=== PATIENT | female | born 1960 | race Caucasian/White ===

== ENCOUNTER → 2016-03-19 | Outpatient (CLI) | payer MEDICAID | END | disposition home or self-care (01) | LOC: LABWHC1 14:59 | PROVIDERS: ATTEND Otolaryngology | DX: E03.9 Hypothyroidism, unspecified (principal) | CPT/HCPCS: 36415; 84443 ==

== ENCOUNTER → 2016-05-17 | Outpatient (CLI) | payer MEDICAID ==
--- NOTE | 2016-05-21 11:22 | MM ---
Reason for exam: screening (asymptomatic). Last mammogram was performed 1 year and 3 months ago. History: Patient is postmenopausal. Taking estrogen beginning at age 51. Physical Findings: A clinical breast exam by your physician is recommended on an annual basis and results should be correlated with mammographic findings. MG Screening Mammo w CAD Bilateral CC and MLO view(s) were taken. Prior study comparison: February 28, 2015, bilateral MG screening mammo w CAD. November 04, 2013, left breast MG diagnostic mammo LT w CAD. The breast tissue is heterogeneously dense. This may lower the sensitivity of mammography. No significant changes when compared with prior studies. ASSESSMENT: Benign, BI-RAD 2 RECOMMENDATION: Routine screening mammogram of both breasts in 1 year.
== END | disposition home or self-care (01) ==
LOC: RADMAMWWP 07:01
PROVIDERS: ATTEND Family Medicine
DX: Z12.31 Encounter for screening mammogram for malignant neoplasm of breast (principal)

== ENCOUNTER → 2016-05-18 | Outpatient (CLI) | payer MEDICAID ==
[~2016-05-18] MED LIST: DENOSUMAB 60 MG/ML 1 ML SYRINGE SQ ONE
[2016-05-18 13:04] VITALS: BP 116/73; PULSE 68; RESP 16; TEMP 97.7
== END | disposition home or self-care (01) ==
LOC: PROCWHC3 11:11
PROVIDERS: ATTEND Family Medicine
DX: M81.0 Age-related osteoporosis without current pathological fracture (principal)
CPT/HCPCS: 96372; J0897

== ENCOUNTER → 2016-10-19 | Outpatient (CLI) | payer MEDICAID ==
[2016-10-19 15:42] LABS: Tis Transglutaminase IgA Unit <0.5 AI; Tis Transglutaminase IgG Unit <0.8 U/mL
== END | disposition home or self-care (01) ==
LOC: LABWHC1 06:55
PROVIDERS: ATTEND Family Medicine
DX: Z00.00 Encounter for general adult medical examination without abnormal findings (principal); E03.8 Other specified hypothyroidism; M81.0 Age-related osteoporosis without current pathological fracture; R14.3 Flatulence
CPT/HCPCS: 36415; 80061; 82306; 82947; 83516; 84439; 84443

== ENCOUNTER → 2016-12-28 | Outpatient (CLI) | payer MEDICAID ==
[2016-12-28 16:57] VITALS: BP 124/82; PULSE 68; RESP 16; TEMP 97.6
== END | disposition home or self-care (01) ==
LOC: PROCWHC3 13:59
PROVIDERS: ATTEND Family Medicine
DX: M81.0 Age-related osteoporosis without current pathological fracture (principal)
CPT/HCPCS: 96372; J0897

== ENCOUNTER → 2017-07-19 | Outpatient (CLI) | payer MEDICAID ==
--- NOTE | 2017-07-22 10:16 | MM ---
Reason for exam: screening (asymptomatic). Last mammogram was performed 1 year and 2 months ago. History: Patient is postmenopausal. Taking estrogen beginning at age 51. Physical Findings: A clinical breast exam by your physician is recommended on an annual basis and results should be correlated with mammographic findings. MG 3D Screening Mammo W/Cad Bilateral CC and MLO view(s) were taken. Prior study comparison: May 17, 2016, bilateral MG screening mammo w CAD. February 28, 2015, bilateral MG screening mammo w CAD. The breast tissue is heterogeneously dense. This may lower the sensitivity of mammography. No suspicious abnormality. No significant changes when compared with prior studies. ASSESSMENT: Negative, BI-RAD 1 RECOMMENDATION: Routine screening mammogram of both breasts in 1 year.
== END | disposition home or self-care (01) ==
LOC: RADMAMWWP 06:59
PROVIDERS: ATTEND Family Medicine
DX: Z12.31 Encounter for screening mammogram for malignant neoplasm of breast (principal)
CPT/HCPCS: 77063; 77067

== ENCOUNTER → 2017-07-26 | Outpatient (CLI) | payer MEDICAID ==
[2017-07-26 14:46] VITALS: BP 127/70; PULSE 92; RESP 16; TEMP 98.2
== END | disposition home or self-care (01) ==
LOC: PROCWHC3 13:53
PROVIDERS: ATTEND Family Medicine
DX: M81.0 Age-related osteoporosis without current pathological fracture (principal)
CPT/HCPCS: 96372; J0897

== ENCOUNTER → 2017-09-17 | Outpatient (CLI) | payer MEDICAID ==
--- NOTE | 2017-09-17 20:23 | CONS ---
CONSULTATION REASON FOR CONSULTATION: Sleep apnea. This patient is 57 and she has a [employer] nurse and she has been diagnosed having obstructive sleep apnea back in 2009. At that time, the patient was found to have severe obstructive sleep apnea with an AHI of 32.5. Following that, the patient was given CPAP therapy at a pressure of 5 cm of water with a C-flex of 3. She is using the older generation Respironics REM Star unit and she is using a Jiang FX nose pillow. She has been very compliant with CPAP therapy and she has been averaging more than 5 hours of CPAP use per night. Never the less, the machine is not functioning appropriately. The humidity is being delivered by the machine is not adequate and at times the machine is quitting on her. For this reason, the patient is coming in for a reevaluation and she is requesting another CPAP titration for pressure adjustments and she wants to upgrade her CPAP machine. She has benefited from CPAP therapy for many years. While on treatment she has felt much more refreshed and alert during the day. Weight has remained stable over the years with probably only 2 pounds weight gain since 2009. Denies having any loud snoring while on CPAP therapy. No issues with insomnia. No choking or gasping sensation. No restlessness in lower extremities. No grinding of the teeth. No other complaints otherwise for now. PAST MEDICAL HISTORY: 1. Obstructive sleep apnea. 2. Hypothyroidism. 3. Chronic anxiety/depression. PAST SURGICAL HISTORY: Includes . DRUG ALLERGIES: To CEFTIN and DURAMORPH. OUTPATIENT MEDICATION: List includes Synthroid 50 mcg p.o. daily, Ranitidine 150 mg p.o. 1-2 tablets a day, Cymbalta 30 mg p.o. daily, melatonin 1 mg at bedtime as needed, Ativan 0.5 mg as needed. SOCIAL HISTORY: The patient is nonsmoker, no history of alcohol, no history of IV drugs. FAMILY HISTORY: Negative for sleep apnea. REVIEW OF SYSTEMS: 12-point review of system was done. Positive findings are mentioned above history of present illness. She is able to function well during the day. She does not feel tired while on the CPAP therapy. She has been having no issues with attention or memory or concentration. No irritability. No claustrophobia. No restlessness in lower extremities. No grinding of the teeth. No sleepwalking. No dry mouth. No anxiety or panic attacks at this point in time. No palpitation. No heartburn. No nighttime shortness of breath or chest pain. Her current Gardners score is at 6. PHYSICAL EXAMINATION: Her current vitals: Blood pressure is 134/83, pulse 84, respirations 16, temperature 97.6, saturation 97% on room air. Gardners score is 6. BMI is 21.3. Neck size 12-2/3 of an inch. GENERAL APPEARANCE: Calm, comfortable. Head is atraumatic, normocephalic. NECK: Supple. There is no JVD. No goiter or neck masses. Mallampati class IV. LUNGS: Clear to auscultation. HEART: Sounds regular rhythm. Normal S1, S2. No S3, S4. No murmurs. ABDOMEN: Soft, nontender. No organomegaly. EXTREMITIES: No edema. No cyanosis or clubbing. NEUROLOGIC: Alert and oriented x3. No focal neurological deficits. PSYCHIATRIC: Negative for anxiety or depression. IMPRESSION: 1. Obstructive sleep apnea severe with an AHI of 35, currently on CPAP pressure of 5 cm of water. The patient has a malfunctioning CPAP unit that is at least 8 years old and she is insistent about updating her CPAP machine. 2. Hypothyroidism. 3. History of fibromyalgia. 4. Hypothyroidism. PLAN: Proceed with CPAP titration. During the titration the patient will be offered a newer mask interface. She prefers to use AirFit P10 nose pillow for which she was fitted today. For titration the patient given a new CPAP machine with an updated pressure. She will see him back for a compliancy check following her titration. MMODL / IJN: [id number] /
== END | disposition home or self-care (01) ==
LOC: SLEEP 16:30
PROVIDERS: ATTEND Internal Medicine Critical Care Medicine
DX: G47.33 Obstructive sleep apnea (adult) (pediatric) (principal); M79.7 Fibromyalgia; E03.9 Hypothyroidism, unspecified; F41.9 Anxiety disorder, unspecified; F32.9 Major depressive disorder, single episode, unspecified; Z98.890 Other specified postprocedural states; Z88.8 Allergy status to other drugs, medicaments and biological substances; Z99.89 Dependence on other enabling machines and devices; Z79.899 Other long term (current) drug therapy
CPT/HCPCS: 99211

== ENCOUNTER → 2017-11-13 | Outpatient (CLI) | payer MEDICAID ==
--- NOTE | 2017-11-13 23:54 | XR ---
EXAMINATION TYPE: XR shoulder complete 3 views RT, XR foot complete 3 views LT DATE OF EXAM: 11/13/2017 COMPARISON: NONE HISTORY: 57-year-old female right shoulder pain and left heel pain for 2 months. FINDINGS: Right shoulder: Mild degenerative spurring at the AC joint. Subacromial space is preserved. No tendinous or bursal ca lcifications. Some bony irregularity and sclerosis at the greater tuberosity. No acute fracture, subl uxation, or dislocation. Left foot: Mild degenerative change at the first MTP joint. Mild bunion formation. Small plantar calcaneal spur. No acute fracture, subluxation, or dislocation. IMPRESSION: 1. Right shoulder: Mild AC joint OA and bony changes suggesting chronic rotator cuff tendinopathy. No acute osseous abnormality seen. 2. Left foot: Mild first MTP joint OA, bunion formation, and small plantar calcaneal spur. No acute o sseous abnormality seen.
== END ==
LOC: RADXRMAIN 16:39
PROVIDERS: ATTEND Family Medicine
DX: M19.011 Primary osteoarthritis, right shoulder (principal); M19.072 Primary osteoarthritis, left ankle and foot; M21.612 Bunion of left foot; M77.32 Calcaneal spur, left foot

== ENCOUNTER → 2017-11-26 | Outpatient (CLI) | payer MEDICAID ==
--- NOTE | 2017-11-26 08:28 | US ---
EXAMINATION TYPE: US thyroid st tissue head/neck DATE OF EXAM: 11/26/2017 COMPARISON: Thyroid ultrasound February 14, 2016 CLINICAL HISTORY: E04.1 Thyroid Nodule. GLAND SIZE: Right Lobe: 4.5 x 1.7 x 1.5 cm Overall Parenchyma: homogenous Left Lobe: 4.5 x 1.3 x 1.1 cm Overall Parenchyma: homogeneous Isthmus Thickness: 0.2 cm NODULES RIGHT: # of nodules measured on right: 2 1. 1.6 X 1.2 x 1.1 cm mixed nodule at the mid pole with well-defined margins; . This nodule is wid er than tall and shows intranodular vascularity. Prior size: 1.7 x 1.3 x 1.3 cm 2. 1.2 X 0.8 x 0.7 cm mixed nodule at the upper pole with well-defined margins; . This nodule is wi ryan than tall and shows no intranodular vascularity. Prior size: 0.8 x 0.4 x 0.6 cm LEFT: # of nodules measured on left: 0 ISTHMUS: # of nodules measured in the isthmus: 0 Bilateral neck scanned, no evidence of lymphadenopathy. There is redemonstration of homogeneous normal size thyroid with scattered small nodules, larger nodu les in right thyroid lobe are not significantly changed from prior ultrasound. No new greater than 1 cm nodules are evident. IMPRESSION: Overall stable findings, stable larger right-sided nodules, no new greater than 1 cm solid or cystic nodules are seen.
[2017-11-26 08:59] LABS: T4, Free (Free Thyroxine) 1.13 ng/dL (0.78-2.19)
== END | disposition home or self-care (01) ==
LOC: RADUSWWP 06:58
PROVIDERS: ATTEND Family Medicine
DX: Z00.00 Encounter for general adult medical examination without abnormal findings (principal); E04.2 Nontoxic multinodular goiter; E03.8 Other specified hypothyroidism; E55.9 Vitamin D deficiency, unspecified
CPT/HCPCS: 36415; 76536; 80061; 82306; 82947; 84439; 84443

== ENCOUNTER → 2018-02-06 | Outpatient (CLI) | payer MEDICAID ==
[2018-02-06 16:23] VITALS: BP 117/59; PULSE 87; RESP 16; TEMP 98.3
== END | disposition home or self-care (01) ==
LOC: PROCWHC3 16:16
PROVIDERS: ATTEND Family Medicine
DX: M81.0 Age-related osteoporosis without current pathological fracture (principal)
CPT/HCPCS: 96372; J0897

== ENCOUNTER → 2018-05-28 | Outpatient (CLI) | payer MEDICAID ==
--- NOTE | 2018-05-29 07:19 | US ---
EXAMINATION TYPE: US thyroid st tissue head/neck DATE OF EXAM: 05/28/2018 COMPARISON: NONE CLINICAL HISTORY: E04.1 THYROID NODULE. Follow up thyroid nodules GLAND SIZE: Right Lobe: 4.6 x 4.5 x 1.9cm Overall Parenchyma: homogenous Left Lobe: 4.1 x 1.3 x 1.4 Overall Parenchyma: homogeneous Isthmus Thickness: 0.4 cm NODULES RIGHT: # of nodules measured on right: 2 1. 1.6 X 1.1 x 1.2 cm mixed nodule at the mid pole with well-defined margins; . This nodule is wid er than tall and shows intranodular vascularity. Prior size: 1.6 x 1.2 x 1.1 cm 2. 0.9 X 0.6 x 0.8 cm mixed nodule at the upper pole with well-defined margins; . This nodule is wi ryan than tall and shows no intranodular vascularity. Prior size: 1.2 x 0.8 x 0.7 cm LEFT: # of nodules measured on left: 0 ISTHMUS: # of nodules measured in the isthmus: 0 Bilateral neck scanned, no evidence of lymphadenopathy. IMPRESSION: Thyroid nodules appear stable relative to the prior exam.
== END | disposition home or self-care (01) ==
LOC: RADUSWWP 15:56
PROVIDERS: ATTEND Otolaryngology
DX: E04.1 Nontoxic single thyroid nodule (principal)
CPT/HCPCS: 76536

== ENCOUNTER → 2018-06-20 | Outpatient (CLI) | payer MEDICAID ==
[2018-06-20 16:03] LABS: Basophils # (A) 0.1 k/uL (0-0.2); Basophils % (A) 1 %; Eosinophils # (A) 0.1 k/uL (0-0.7); Eosinophils % (A) 2 %; HCT 42.2 % (34.0-46.0); HGB 14.1 gm/dL (11.4-16.0); Lymphocytes # (A) 1.8 k/uL (1.0-4.8); Lymphocytes % (A) 27 %; MCH 31.9 pg (25.0-35.0); MCHC 33.5 g/dL (31.0-37.0); MCV 95.2 fL (80.0-100.0); Mean Platelet Volume 6.8; Monocytes # (A) 0.5 k/uL (0-1.0); Monocytes % (A) 7 %; Neutrophils # (A) 4.1 k/uL (1.3-7.7); Neutrophils % (A) 61 %; Platelet Count 332 k/uL (150-450); RBC 4.44 m/uL (3.80-5.40); RDW 13.2 % (11.5-15.5); WBC 6.7 k/uL (3.8-10.6)
[2018-06-20 23:36] LABS: Albumin 4.5 g/dL (3.80-4.90); Albumin/Globulin Ratio 2.25 (1.60-3.17); Anion Gap 9.5 mmol/L (4.00-12.00); Calcium 9.6 mg/dL (8.7-10.3); Carbon Dioxide 25.5 mmol/L (21.6-31.8); Potassium 4.3 mmol/L (3.5-5.5); Total Bilirubin 0.4 mg/dL (0.2-1.2); Total Protein 6.5 g/dL (6.2-8.2)
== END | disposition home or self-care (01) ==
LOC: LABWHC1 15:21
PROVIDERS: ATTEND Family Medicine
DX: R53.83 Other fatigue (principal)
CPT/HCPCS: 36415; 80053; 82607; 82728; 85025

== ENCOUNTER → 2018-07-08 | Outpatient (CLI) | payer MEDICAID ==
--- NOTE | 2018-07-08 15:23 | XR ---
EXAMINATION TYPE: XR chest 2V DATE OF EXAM: 07/08/2018 COMPARISON: 10/27/2014 HISTORY: Chest tightness and cough TECHNIQUE: Frontal and lateral views of the chest are obtained. FINDINGS: There is no focal air space opacity, pleural effusion, or pneumothorax seen. The cardiac silhouette size is within normal limits. The osseous structures are intact. Minimal multilevel dege nerative changes of thoracic spine are seen. IMPRESSION: No acute cardiopulmonary process.
== END | disposition home or self-care (01) ==
LOC: RADXRMAIN 15:05
PROVIDERS: ATTEND Family Medicine
DX: R07.89 Other chest pain (principal)
CPT/HCPCS: 71046

== ENCOUNTER 2018-07-23 11:24 | Day surgery (SDC) | payer MEDICAID ==
[2018-07-22 09:24] VITALS: BMI 21.2
[~2018-07-23 11:24] MED LIST changes: -DENOSUMAB 60 MG/ML 1 ML SYRINGE SQ ONE; +LACTATED RINGERS 1,000 ML IV SCH
[2018-07-23 11:51] VITALS: TEMP 97.9
[2018-07-23] MEDS ORDERED: LIDOCAINE 1% 20 ML VIAL (10MG/ML) FOR IV START INTRADERMA ONE (11:59)
[2018-07-23] MEDS ORDERED: PROPOFOL 10 MG/ML 20 ML VIAL IV ONE (13:10)
[2018-07-23] MEDS ORDERED: LIDOCAINE 1% INJ 10MG/ML (20 ML MDV) ONE (13:10)
--- NOTE | 2018-07-23 13:18 | P.PCN ---
Date of Procedure: 07/23/18 Procedure(s) Performed: BRIEF HISTORY: Patient is a 58-year-old, pleasant, white female, scheduled for an upper endoscopy as a part of evaluation of long-standing history of GERD and intermittent chest discomfort and dysphagia for the last few months duration.. PROCEDURE PERFORMED: Esophagogastroduodenoscopy with biopsy. PREOPERATIVE DIAGNOSIS: Long-standing history of GERD/intermittent dysphagia and chest pain for 2 months. IV sedation per anesthesia. PROCEDURE: After informed consent was obtained, the patient was brought into the endoscopy unit. IV sedation was administered by Anesthesia under continuous monitoring. Initially the Olympus GIF-140 video endoscope was inserted into the mouth. Esophagus intubated without any difficulty. It was gradually advanced into the stomach and duodenum and carefully examined. The bulb and the second part of the duodenum appeared normal. The scope at this time was withdrawn to the stomach, adequately insufflated with air, and upon careful examination, mucosa of the antrum, had mild gastritis and biopsies were done from this area. The body, cardia and the fundus appeared normal. The scope was then withdrawn into the esophagus. The GE junction was located at 37 cm from the incisors. There was a short segment of Smith's mucosa extending 5 mm proximal to the GE junction was biopsied. The rectal small superficial erosions at the GE junction consistent with LA grade a reflux esophagitis. The rest of the esophagus appeared normal. Biopsies were done from the distal esophagus and the patient tolerated the procedure well. IMPRESSION: 1. Short segment Smith's esophagus status post biopsy. 2. LA grade A reflux esophagitis. 3. Mild antral gastritis. RECOMMENDATIONS: The findings of this examination were discussed with the patient as well as a family. She was advised to follow with the biopsy results. She will continue with Zantac 150 milligrams twice daily regularly and follow antireflux measures. If the biopsy confirms presence of Smith's esophagus, she can have a repeat upper endoscopy in 2 years.
[2018-07-23 13:40] VITALS: RESP 18
[2018-07-23 13:52] VITALS: BP 123/67; PULSE 88
== END 2018-07-23 14:00 | disposition home or self-care (01) ==
LOC: ORWHC2ENDO 11:24
PROVIDERS: ATTEND Internal Medicine Gastroenterology
DX: K21.0 Gastro-esophageal reflux disease with esophagitis (principal); K22.70 Barrett's esophagus without dysplasia; K29.50 Unspecified chronic gastritis without bleeding; Z88.5 Allergy status to narcotic agent; Z88.8 Allergy status to other drugs, medicaments and biological substances; E07.9 Disorder of thyroid, unspecified; Z79.890 Hormone replacement therapy; Z79.899 Other long term (current) drug therapy
CPT/HCPCS: 88305; 43239; J2001; J2704

== ENCOUNTER → 2018-09-05 | Outpatient (CLI) | payer MEDICAID ==
[~2018-09-05] MED LIST changes: +DENOSUMAB 60 MG/ML 1 ML SYRINGE SQ NR; +DENOSUMAB 60 MG/ML 1 ML SYRINGE SQ ONE; -LACTATED RINGERS 1,000 ML IV SCH
[2018-09-05 15:19] VITALS: BP 128/72; PULSE 76; RESP 16; TEMP 98.2
== END ==
LOC: PROCWHC3 14:55
PROVIDERS: ATTEND Family Medicine
DX: M81.0 Age-related osteoporosis without current pathological fracture (principal)
CPT/HCPCS: 96372; J0897

== ENCOUNTER → 2018-11-25 | Outpatient (CLI) | payer MEDICAID ==
--- NOTE | 2018-11-27 14:53 | MM ---
Reason for exam: screening (asymptomatic). Last mammogram was performed 1 year and 4 months ago. History: Patient is postmenopausal. Taking estrogen beginning at age 51. Physical Findings: A clinical breast exam by your physician is recommended on an annual basis and results should be correlated with mammographic findings. MG 3D Screening Mammo W/Cad Bilateral CC and MLO view(s) were taken. XCCL view(s) were taken of the left breast. Prior study comparison: July 19, 2017, bilateral MG 3d screening mammo w/cad. May 17, 2016, bilateral MG screening mammo w CAD. The breast tissue is heterogeneously dense. This may lower the sensitivity of mammography. No suspicious abnormality. Stable left upper outer quadrant posterior depth focal asymmetry improved on XCCL. No significant changes when compared with prior studies. ASSESSMENT: Benign, BI-RAD 2 RECOMMENDATION: Routine screening mammogram of both breasts in 1 year.
== END | disposition home or self-care (01) ==
LOC: RADMAMWWP 07:40
PROVIDERS: ATTEND Family Medicine
DX: Z12.31 Encounter for screening mammogram for malignant neoplasm of breast (principal)
CPT/HCPCS: 77063; 77067

== ENCOUNTER → 2019-03-04 | Outpatient (CLI) | payer MEDICAID ==
--- NOTE | 2019-03-05 07:40 | BD ---
EXAMINATION TYPE: Axial Bone Density DATE OF EXAM: 03/04/2019 COMPARISON: 2017 CLINICAL HISTORY: M 81.0 Height: 5 FT 1 1/2 IN Weight: 116 FRAX RISK QUESTIONS: Alcohol (3 or more units per day): NO Family History (Parent hip fracture): NO Glucocorticoids (More than 3mos): NO (Ex: prednisone, prednisolone, methylprednisolone, dexamethasone, and hydrocortisone). History of Fracture in Adulthood: NO Secondary Osteoporosis: 1. Type 1 Diabetes: NO 2. Hyperthyroidism: NO 3. Menopause before 45: NO 4. Malnutrition: NO 5. Chronic liver disease: NO Rheumatoid Arthritis: NO Current Tobacco Use: NO RISK FACTORS HISTORY OF: Family History of Osteoporosis: YES Active: YES Postmenopausal woman: AGE 50 Take estrogen and/or progesterone medications: VAGINAL CREAM SEV YEARS MEDICATIONS: Thyroid Medications: YES Which medication: SYNTHROID How Long: APPROX 7 YEARS Osteoporosis Medications: YES Which medication: PROLIA How Long: APPROX 3 YEARS Additional Medications: PROLIA, SYNTHROID,CYMBALTA, Additional History: EXAM MEASUREMENTS: Bone mineral densitometry was performed using the [employer] System. Bone mineral density as measured about the Lumbar spine is: ----- L1-L4(G/cm2): 0.943 T Score Values are as follows: ----- L2: -2.3 ----- L3: -1.3 ----- L4: -2.3 ----- L1-L4: -2.0 Bone mineral density has: INCREASED 9.9 % since study of: 2017 Bone mineral density about the R hip (g/cm2): 0.774 Bone mineral density about the L hip (g/cm2): 0.734 T Score values are as follows: -----R Neck: -1.9 -----L Neck: -2.2 -----R Total: -1.6 -----L Total: -1.2 Bone mineral density has: DECREASED -0.1 % since study of: 2017 IMPRESSION: Osteopenia (T Score between -2.5 and -1). There is slightly increased risk of fracture and the patient may be considered for treatment. Re-Screen 2-5 years. NOTE: T-SCORE=SD OF THE YOUNG ADULT MEAN.
== END | disposition home or self-care (01) ==
LOC: RADBDWWP 14:59
PROVIDERS: ATTEND Family Medicine
DX: M85.80 Other specified disorders of bone density and structure, unspecified site (principal)
CPT/HCPCS: 77080

== ENCOUNTER → 2019-03-11 | Outpatient (CLI) | payer MEDICAID ==
[~2019-03-11] MED LIST changes: -DENOSUMAB 60 MG/ML 1 ML SYRINGE SQ ONE
[2019-03-11 14:04] VITALS: BP 123/67; PULSE 93; RESP 16; TEMP 98.2
== END | disposition home or self-care (01) ==
LOC: PROCWHC3 13:19
PROVIDERS: ATTEND Family Medicine
DX: M81.0 Age-related osteoporosis without current pathological fracture (principal)
CPT/HCPCS: 96372; J0897

== ENCOUNTER → 2019-04-28 | Outpatient (CLI) | payer MEDICAID ==
[2019-04-28 11:01] LABS: Chol/HDL Ratio 2.31; LDL Cholesterol,Calculated 83.6 mg/dL (0.0-131.0); VLDL Calculation 13.4 mg/dL (5.00-40.00)
[2019-04-28 11:08] LABS: T4, Free (Free Thyroxine) 1.2 ng/dL (0.80-1.80)
== END | disposition home or self-care (01) ==
LOC: LABWHC1 06:47
PROVIDERS: ATTEND Family Medicine
DX: Z00.00 Encounter for general adult medical examination without abnormal findings (principal); E03.8 Other specified hypothyroidism
CPT/HCPCS: 36415; 80061; 84439; 84443

== ENCOUNTER → 2019-06-18 | Outpatient (CLI) | payer MEDICAID ==
--- NOTE | 2019-06-18 10:00 | P.STRESS ---
- Stress Test Note Stress Test Results/Findings: Exam Performed: stress test Exam Date: 06/18/19 Reason for Exam: PALPITATIONS Height: 5 ft 2 in Weight: 53 kg Protocol: EDY Stage: 3 Duration of Exercise: 9:00 Resting Heart Rate: 80 Resting Blood Pressure: 124/76 Maximum Achieved Heart Rate: 144 Maximum Achieved Blood Pressure: 161/87 85% PMHR: 137 100% PMHR: 161 METS: 10.3 Technologist Comment: Stress Test Results/Findings: This is a 58-year-old female with history of any cardiac disease in the family being evaluated for palpitations. Stress data: Baseline EKG showed sinus rhythm with normal ND, QRS duration. Blood pressure at rest is 124/76 with pulse rate of 80. Patient walked on a Edy protocol for 9 minutes, achieved a maximal heart rate of 144 with a blood pressure 141/84. EKGs taken during and after the x-ray did not reveal any significant changes from baseline. Final impression: #1. Negative stress test #2. P" atient did not experience any chest pain. 3. Occasional PVCs were noted. #4. Patient's exercise capacity is good
== END | disposition home or self-care (01) ==
LOC: RADNMMAIN 08:33
PROVIDERS: ATTEND Family Medicine
DX: R07.89 Other chest pain (principal)
CPT/HCPCS: 93017

== ENCOUNTER → 2019-10-30 | Outpatient (CLI) | payer MEDICAID ==
--- NOTE | 2019-10-30 14:51 | XR ---
Lumbar spine HISTORY: Low back pain, left hip pain 3 views the lumbar spine Lumbar vertebral bodies show preserved height, alignment, and bone mineralization. There is partial s acralization of L5. Disc spaces are remarkable for some mild disc height loss L3-4, L2-3 and L5-S1. T here is mild multilevel spondylosis. Sclerosis is present in the posterior elements of the lower lumb ar spine. IMPRESSION: Facet arthropathy. Mild degenerative disc disease.
== END | disposition home or self-care (01) ==
LOC: RADXRMAIN 14:20
PROVIDERS: ATTEND Family Medicine
DX: M51.36 Other intervertebral disc degeneration, lumbar region (principal); M47.896 Other spondylosis, lumbar region
CPT/HCPCS: 72100

== ENCOUNTER → 2019-11-17 | Outpatient (CLI) | payer MEDICAID | END | disposition home or self-care (01) | LOC: PROCWHC3 13:37 | PROVIDERS: ATTEND Family Medicine | DX: M81.0 Age-related osteoporosis without current pathological fracture (principal) | CPT/HCPCS: 96372 ==

== ENCOUNTER → 2019-12-29 | Outpatient (CLI) | payer MEDICAID ==
[2019-12-29 16:32] LABS: Basophils % (A) 0 %; Eosinophils # (A) 0.1 k/uL (0-0.7); Eosinophils % (A) 1 %; HCT 42.8 % (34.0-46.0); HGB 14.2 gm/dL (11.4-16.0); Lymphocytes # (A) 1.8 k/uL (1.0-4.8); Lymphocytes % (A) 28 %; MCH 32.4 pg (25.0-35.0); MCHC 33.2 g/dL (31.0-37.0); MCV 97.6 fL (80.0-100.0); Mean Platelet Volume 6.4; Monocytes # (A) 0.5 k/uL (0-1.0); Monocytes % (A) 8 %; Neutrophils % (A) 61 %; Platelet Count 312 k/uL (150-450); RBC 4.39 m/uL (3.80-5.40); RDW 12.4 % (11.5-15.5); WBC 6.5 k/uL (3.8-10.6)
[2019-12-29 16:39] LABS: Appearance,Urine Clear (Clear); Bilirubin,Urine Negative (Negative); Blood,Urine Negative (Negative); Color,Urine Yellow; Glucose,Urine (UA) Negative (Negative); Ketones,Urine Negative (Negative); Leukocyte Esterase,Urine Moderate (Negative); Mucus,Urine Rare /hpf; Nitrite,Urine Negative (Negative); Protein,Urine Negative (Negative); RBC,Urine 2 /hpf (0-5); Specific Gravity,Urine 1.016 (1.001-1.035); Squamous Epithelial Cell,Urine 1 /hpf (0-4); Urobilinogen,Urine <2.0 mg/dL (<2.0); WBC,Urine 4 /hpf (0-5)
[2019-12-30 02:53] LABS: Protein, Total 6.8 g/dL (6.2-8.2)
[2019-12-30 03:31] LABS: ALT 19 U/L (8-44); AST 22 U/L (13-35); African American GFR (CKD) 70.9 (60.0-200.0); Albumin/Globulin Ratio 2.05 (1.60-3.17); Alkaline Phosphatase 46 U/L (41-126); C Reactive Protein <0.4 mg/dL (0.0-0.8); Calcium 9.6 mg/dL (8.7-10.3); Carbon Dioxide 26.5 mmol/L (21.6-31.8); Chloride 106 mmol/L (96-109); Globulin 2.2 g/dL (1.6-3.3); Glucose 101 mg/dL (70-110); Non-African American GFR(CKD) 61.2 (60.0-200.0); Potassium 4.1 mmol/L (3.5-5.5); Sodium 142 mmol/L (135-145); Total Bilirubin 0.3 mg/dL (0.3-1.2); Total Protein 6.7 g/dL (6.2-8.2)
[2019-12-30 14:04] LABS: Albumin 4.18 g/dL (3.80-4.90); Gamma Globulin 0.94 g/dL (0.70-1.50)
== END | disposition home or self-care (01) ==
LOC: LABWHC1 15:59
PROVIDERS: ATTEND Nurse Practitioner Family
DX: E03.9 Hypothyroidism, unspecified (principal); M89.8X9 Other specified disorders of bone, unspecified site; R10.9 Unspecified abdominal pain
CPT/HCPCS: 36415; 80053; 81001; 84165; 84443; 85025; 86038; 86140; 87086

== ENCOUNTER → 2020-01-04 | Outpatient (CLI) | payer MEDICAID ==
--- NOTE | 2020-01-05 08:24 | XR ---
EXAMINATION TYPE: XR Hip LT and AP Pelvis DATE OF EXAM: 01/04/2020 COMPARISON: None HISTORY: Pain TECHNIQUE: 2 view left hip supplemented with an AP pelvis FINDINGS: Femoral head articulates with the acetabulum. Joint spaces preserved. No acute fracture or dislocation is evident. Pelvis appears intact. Symphysis pubis and sacroiliac joints are normal. Normal bowel gas is present. Moderate fecal retention is present. IMPRESSION: 1. Normal 2 view left hip. 2. Moderate fecal retention
== END | disposition home or self-care (01) ==
LOC: RADXRMAIN 15:42
PROVIDERS: ATTEND Nurse Practitioner Family
DX: K59.00 Constipation, unspecified (principal)
CPT/HCPCS: 73502

== ENCOUNTER → 2020-02-03 | Outpatient (CLI) | payer MEDICAID ==
--- NOTE | 2020-02-03 10:56 | MM ---
Reason for exam: screening (asymptomatic). Last mammogram was performed 1 year and 2 months ago. History: Patient is postmenopausal. Taking estrogen beginning at age 51. Physical Findings: A clinical breast exam by your physician is recommended on an annual basis and results should be correlated with mammographic findings. MG 3D Screening Mammo W/Cad Bilateral CC and MLO view(s) were taken. Prior study comparison: November 25, 2018, bilateral MG 3d screening mammo w/cad. July 19, 2017, bilateral MG 3d screening mammo w/cad. The breast tissue is heterogeneously dense. This may lower the sensitivity of mammography. There is no discrete abnormality. ASSESSMENT: Negative, BI-RAD 1 RECOMMENDATION: Routine screening mammogram of both breasts in 1 year.
== END | disposition home or self-care (01) ==
LOC: RADMAMWWP 07:00
PROVIDERS: ATTEND Family Medicine
DX: Z12.31 Encounter for screening mammogram for malignant neoplasm of breast (principal)
CPT/HCPCS: 77063; 77067

== ENCOUNTER → 2020-05-03 | Outpatient (CLI) | payer MEDICAID ==
--- NOTE | 2020-05-03 15:59 | US ---
EXAMINATION TYPE: US pelvic complete DATE OF EXAM: 05/03/2020 COMPARISON: NONE CLINICAL HISTORY: R14.0 abdominal distension. Pt states ABD distention TECHNIQUE: Transabdominal (TA). Transabdominal sonographic images of the pelvis were acquired. Date of LMP: 2011 EXAM MEASUREMENTS: Uterus: 8.6 x 2.8 x 4.6 cm Endometrial Stripe: 0.4 cm Right Ovary: 2.2 x 2.4 x 1.5 cm Left Ovary: 2.2 x 2.1 x 1.7 cm 1. Uterus: Anteverted wnl 2. Endometrium: wnl 3. Right Ovary: wnl 4. Left Ovary: Small cyst= 1.4 x 1.2 x 1.9 cm 5. Bilateral Adnexa: wnl 6. Posterior cul-de-sac: wnl Small cyst left ovary. Urinary bladder is sonolucent. IMPRESSION: 1. Small left ovarian cyst.
--- NOTE | 2020-05-03 17:23 | US ---
EXAMINATION TYPE: US thyroid st tissue head/neck DATE OF EXAM: 05/03/2020 COMPARISON: 05/28/2018 CLINICAL HISTORY: E04.1 thyroid nodule. F/U nodules GLAND SIZE: Right Lobe: 4.5 x 2.0 x 1.4 cm Overall Parenchyma: homogenous Left Lobe: 4.1 x 1.0 x 1.2 cm Overall Parenchyma: homogeneous Isthmus Thickness: 0.2 cm NODULES RIGHT: # of nodules measured on right: 2 1. 2.1 X 1.5 x 1.3 cm, mid, solid or almost completely solid, hypoechoic nodule, which is wider igor n tall, with smooth margins, without echogenic foci. Prior size: 1.6 x 1.1 x 1.2 cm . This has enlarged over the interval. 2. 0.7 X 0.4 x 0.5 cm, upper, mixed cystic and solid, hypoechoic nodule, which is wider than tall, with margins, with echogenic foci. Prior size: 0.9 x 0.6 x 0.8 cm LEFT: # of nodules measured on left: 1 1. 0.6 X 0.4 x 0.7 cm, upper, solid or almost completely solid, isoechoic nodule, which is wider th an tall, with ill-defined margins, without echogenic foci. Prior size: Not visualized on prior Bilateral neck scanned, no evidence of lymphadenopathy. Nodule right lobe increased in size when comp ared to prior. New sub-centimeter nodule left lobe. IMPRESSION: 1. Moderately suspicious nodule right lobe thyroid. Fine-needle aspiration is recommended. 2017 ACR TI-RADS LEVEL: TR-RADS 4 - Moderately Suspicious: Follow if > 1 cm, FNA if > 1.5 cm *Highest TI-RADS level nodule reported. A Yellow level critical message alert has been initiated for Valente Cullen DO via the [employer] [facility] Critical Results System on 05/03/2020 5:20 PM. This message alert has been sent to Valente rehman DO via the preferences provided by the clinician for the receipt of Radiology Critical Findings. Message ID [id number].
== END ==
LOC: RADUSWWP 15:22
PROVIDERS: ATTEND Family Medicine
DX: E04.1 Nontoxic single thyroid nodule (principal); N83.202 Unspecified ovarian cyst, left side
CPT/HCPCS: 76536; 76856

== ENCOUNTER → 2020-05-11 | Outpatient (CLI) | payer MEDICAID ==
[2020-05-11 11:42] LABS: Chol/HDL Ratio 2.81; LDL Cholesterol,Calculated 105.4 mg/dL (0.0-131.0); VLDL Calculation 17.6 mg/dL (5.00-40.00)
== END | disposition home or self-care (01) ==
LOC: LABWHC1 07:37
PROVIDERS: ATTEND Family Medicine
DX: Z00.00 Encounter for general adult medical examination without abnormal findings (principal); N83.209 Unspecified ovarian cyst, unspecified side
CPT/HCPCS: 36415; 80061; 86304

== ENCOUNTER 2020-05-18 08:29 | Day surgery (SDC) | payer MEDICAID ==
[2020-05-13 13:45] VITALS: BMI 21.0
[~2020-05-18 08:29] MED LIST changes: -DENOSUMAB 60 MG/ML 1 ML SYRINGE SQ NR; +LACTATED RINGERS 1,000 ML IV SCH
[2020-05-18] MEDS ORDERED: LIDOCAINE 1% (10MG/ML) FOR IV START INTRADERMA ONE (09:01)
[2020-05-18 09:03] VITALS: RESP 16; TEMP 98.2
[2020-05-18] MEDS ORDERED: PROPOFOL 10 MG/ML 20 ML VIAL IV ONE (09:43)
[2020-05-18] MEDS ORDERED: LIDOCAINE 1% INJ 10MG/ML (20 ML MDV) ONE (09:43)
--- NOTE | 2020-05-18 09:52 | P.PCN ---
Date of Procedure: 05/18/20 Procedure(s) Performed: BRIEF HISTORY: Patient is a 59-year-old, pleasant, white female scheduled for an upper endoscopy as a part of evaluation long-standing history of GERD. She remains on Pepcid 20 mg daily.. PROCEDURE PERFORMED: Esophagogastroduodenoscopy with biopsy. PREOPERATIVE DIAGNOSIS: Long-standing history of GERD. IV sedation per anesthesia. PROCEDURE: After informed consent was obtained, the patient was brought into the endoscopy unit. IV sedation was administered by Anesthesia under continuous monitoring. Initially the Olympus GIF-140 video endoscope was inserted into the mouth. Esophagus intubated without any difficulty. It was gradually advanced into the stomach and duodenum and carefully examined. The bulb and the second part of the duodenum appeared normal. The scope at this time was withdrawn to the stomach, adequately insufflated with air, and upon careful examination, mucosa of the antrum had mild gastritis and biopsies were done from this area. The, body, cardia and the fundus appeared normal. The scope was then withdrawn into the esophagus. The GE junction was located at 37 cm from the incisors. There was a short tongue of Smith's appearing mucosa extending 3 mm proximal to the GE junction was biopsied. The rest of the esophagus appeared normal. There were no erosions or ulcerations seen and the patient tolerated the procedure well. IMPRESSION: 1. Mild antral gastritis. 2. Short segment Smith's esophagus status post biopsies. RECOMMENDATIONS: The findings of this examination were discussed with the patient as well his family. She was advised to follow with the biopsy results. If the biopsy confirms the presence of Smith's esophagus and she can have a repeat upper endoscopy in 2-3 years. In the meantime she will continue with Pepcid 20 mg daily and continue to follow antireflux measures.
[2020-05-18 10:30] VITALS: BP 127/67; PULSE 94
== END 2020-05-18 10:30 | disposition home or self-care (01) ==
LOC: ORWHC2ENDO 08:29
PROVIDERS: ATTEND Internal Medicine Gastroenterology
DX: K22.70 Barrett's esophagus without dysplasia (principal); K29.50 Unspecified chronic gastritis without bleeding; K21.00 Gastro-esophageal reflux disease with esophagitis, without bleeding; E03.9 Hypothyroidism, unspecified; G47.33 Obstructive sleep apnea (adult) (pediatric); Z79.890 Hormone replacement therapy; Z79.899 Other long term (current) drug therapy; Z88.6 Allergy status to analgesic agent; Z88.5 Allergy status to narcotic agent; Z99.89 Dependence on other enabling machines and devices
CPT/HCPCS: 88305; 43239; J2001; J2704

== ENCOUNTER → 2020-05-20 | Outpatient (CLI) | payer MEDICAID ==
[~2020-05-20] MED LIST changes: +DENOSUMAB 60 MG/ML 1 ML SYRINGE SQ ONE; -LACTATED RINGERS 1,000 ML IV SCH
[2020-05-20 14:04] VITALS: BP 145/62; PULSE 70; RESP 16; TEMP 97.6
== END ==
LOC: PROCWHC3 12:35
PROVIDERS: ATTEND Family Medicine
DX: M81.0 Age-related osteoporosis without current pathological fracture (principal)
CPT/HCPCS: 96372; J0897

== ENCOUNTER 2020-06-06 12:29 | Day surgery (SDC) | payer MEDICAID ==
[2020-06-06 13:30] VITALS: RESP 16; TEMP 98.1
[2020-06-06 14:21] VITALS: BP 143/77; PULSE 87
--- NOTE | 2020-06-06 17:26 | US ---
EXAMINATION TYPE: US FNA first lesion DATE OF EXAM: 06/06/2020 COMPARISON: Thyroid ultrasound 05/03/2020 HISTORY: Thyroid nodule. Maximal barrier technique was utilized. After informed consent, skin overlying the right lobe thyroi d nodule was localized with ultrasound and the overlying skin prepped and draped. Ultrasound was util ized using sterile technique. Lidocaine was used for local anesthesia. Five passes with a 25-gauge n eedle were made into the nodule and aspirated specimen was submitted to cytology. Following the proc edure hemostasis achieved. No immediate complication. The patient discharged in stable condition. IMPRESSION: STATUS POST ULTRASOUND GUIDED FINE NEEDLE ASPIRATION OF THYROID NODULE, PATHOLOGY IS PEND ING. THIS PROCEDURE WAS PERFORMED BY THE UNDERSIGNED.
== END 2020-06-06 14:16 | disposition home or self-care (01) ==
LOC: RADPROMAIN 12:29
PROVIDERS: ATTEND Family Medicine
DX: D34 Benign neoplasm of thyroid gland (principal)
CPT/HCPCS: 10005; 88173; 88305

== ENCOUNTER → 2020-07-05 | Outpatient (CLI) | payer MEDICAID ==
[2020-07-05 21:02] LABS: T4, Free (Free Thyroxine) 1.3 ng/dL (0.80-1.80)
== END | disposition home or self-care (01) ==
LOC: LABWHC1 14:40
PROVIDERS: ATTEND Family Medicine
DX: E03.8 Other specified hypothyroidism (principal)
CPT/HCPCS: 36415; 84439; 84443

== ENCOUNTER → 2020-08-19 | Outpatient (CLI) | payer MEDICAID ==
--- NOTE | 2020-08-19 16:09 | US ---
EXAMINATION TYPE: US pelvic complete DATE OF EXAM: 08/19/2020 COMPARISON: US 05/03/2020 CLINICAL HISTORY: N83.209 OVARIAN CYST. Followup left ovarian cyst on last US; ; C section x 5; u ses Hormonal Vaginal Cream approximately twice/month. TECHNIQUE: Transvaginal sonographic images were medically necessary to better assess the following an atomy: ovaries and also bladder was not full for TA US. Date of LMP: approximately age 51 EXAM MEASUREMENTS: Uterus: 7.2 x 3.8 x 2.3 cm Endometrial Stripe: 0.2 cm Right Ovary: 1.4 x 1.3 x 1.5 cm Left Ovary: 1.8 x 1.4 x 1.1 cm 1. Uterus: Anteverted; small Nabothian Cyst seen in cervix. 2. Endometrium: thin, fluid area noted upper endometrium = 1.2 x 0.3 x 0.1cm, however, thickness is w nl for postmenopausal patient 3. Right Ovary: small cyst seen = 0.7 x 0.5 x 0.6cm 4. Left Ovary: 1.9 mm peripheral hyperechoic calcification seen 5. Bilateral Adnexa: wnl 6. Posterior cul-de-sac: wnl IMPRESSION: 1. Tiny amount of fluid within the upper endometrial canal. Endometrial fluid retention can be seen with cervical stenosis or mass. This is a however, a tiny amount of fluid. Direct gynecologic evaluat ion could be performed. 2. The endometrial thickness is 2 mm, within normal limits for a menstruating female. 3. 7 mm right ovarian cyst. The previously seen left ovarian cyst is not visualized.
== END | disposition home or self-care (01) ==
LOC: RADUSWWP 14:43
PROVIDERS: ATTEND Family Medicine
DX: N83.201 Unspecified ovarian cyst, right side (principal)
CPT/HCPCS: 76830

== ENCOUNTER → 2020-12-02 | Outpatient (CLI) | payer MEDICAID ==
--- NOTE | 2020-12-03 17:49 | XR ---
EXAMINATION TYPE: XR chest 2V DATE OF EXAM: 12/02/2020 COMPARISON: NONE HISTORY: Cough, congestion, chills for one week TECHNIQUE: Frontal and lateral views of the chest are obtained. FINDINGS: There is no focal air space opacity, pleural effusion, or pneumothorax seen. The cardiac silhouette size is within normal limits. The osseous structures are intact. IMPRESSION: No acute cardiopulmonary process.
== END | disposition home or self-care (01) ==
LOC: RADXRMAIN 16:17
PROVIDERS: ATTEND Physician Assistant Medical
DX: R05.9 Cough, unspecified (principal); R09.89 Other specified symptoms and signs involving the circulatory and respiratory systems
CPT/HCPCS: 71046

== ENCOUNTER → 2020-12-08 | Outpatient (CLI) | payer MEDICAID ==
--- NOTE | 2020-12-08 16:36 | US ---
EXAMINATION TYPE: US transvaginal DATE OF EXAM: 12/08/2020 COMPARISON: NONE CLINICAL HISTORY: 60-year-old female N85.9 Noninflammatory disorder of uterus, unspecified. TECHNIQUE: Transabdominal sonographic images of the pelvis were acquired. Transvaginal sonographic i mages were medically necessary to better assess the anatomy. FINDINGS: EXAM MEASUREMENTS: Uterus: 6.8 x 2.3 x 3.8 cm Endometrial Stripe: 0.3 cm Right Ovary: 1.1 x 0.7 x 0.8 cm Left Ovary: 2.0 x 1.4 x 1.8 cm 1. Uterus: Anteverted and otherwise wnl 2. Endometrium: Trace sliver of fluid within the uterine cavity. 3. Right Ovary: wnl. The previous cyst is no longer seen. 4. Left Ovary: New small cyst measuring 1.1 x 1.0 x 1.2cm 5. Bilateral Adnexa: wnl 6. Posterior cul-de-sac: wnl IMPRESSION: 1. Trace sliver of fluid remains within the uterine cavity. The endometrial stripe appears thin at 3 mm. Follow-up in 6 months to reassess. 2. A new 1.2 cm cyst of the left ovary. The previous small cyst within the right ovary appears to hav e resolved. This should also be reassessed at the 6 month follow-up.
== END | disposition home or self-care (01) ==
LOC: RADUSWWP 14:58
PROVIDERS: ATTEND Obstetrics & Gynecology
DX: N83.202 Unspecified ovarian cyst, left side (principal)
CPT/HCPCS: 76830

== ENCOUNTER → 2020-12-12 | Outpatient (CLI) | payer MEDICAID ==
[2020-12-12 15:48] VITALS: BP 143/79; PULSE 97; RESP 16; TEMP 97.5
== END ==
LOC: PROCWHC3 15:14
PROVIDERS: ATTEND Family Medicine
DX: M81.0 Age-related osteoporosis without current pathological fracture (principal); Z88.5 Allergy status to narcotic agent; Z88.1 Allergy status to other antibiotic agents
CPT/HCPCS: 96372; J0897

== ENCOUNTER → 2021-05-11 | Outpatient (CLI) | payer MEDICAID ==
[2021-05-11 15:02] LABS: Basophils # (A) 0.02 X 10*3/uL (0.00-0.10); Basophils % (A) 0.4 %; Eosinophils # (A) 0.06 X 10*3/uL (0.04-0.35); Eosinophils % (A) 1.1 %; HCT 42.7 % (37.2-46.3); HGB 13.9 g/dL (12.0-15.0); Immature Grans, Automated 0.4 %; Lymphocytes # (A) 1.24 X 10*3/uL (0.90-5.00); MCH 31.9 pg (27.0-32.0); MCHC 32.6 g/dL (32.0-37.0); MCV 97.9 fL (80.0-97.0); Mean Platelet Volume 9.3 fL (9.5-12.2); Monocytes % (A) 7.1 %; NRBC Per 100 WBC 0 /100 WBCS (0.0-0.0); Neutrophils # (A) 3.89 X 10*3/uL (1.80-7.70); Platelet Count 285 X 10*3/uL (140-440); RBC 4.36 X 10*6/uL (4.10-5.20); RDW 11.9 % (11.5-14.5); WBC 5.63 X 10*3/uL (4.50-10.00)
[2021-05-11 15:21] LABS: C Reactive Protein <0.30 mg/dL (0.00-0.80); Chol/HDL Ratio 2.32 Ratio
[2021-05-11 16:45] LABS: Erythrocyte Sedimentation Rate 6 mm/Hr (0-30)
== END | disposition home or self-care (01) ==
LOC: LABWHC1 08:02
PROVIDERS: ATTEND Family Medicine
DX: Z00.00 Encounter for general adult medical examination without abnormal findings (principal); M81.0 Age-related osteoporosis without current pathological fracture; M25.50 Pain in unspecified joint; E03.8 Other specified hypothyroidism; R03.0 Elevated blood-pressure reading, without diagnosis of hypertension
CPT/HCPCS: 36415; 80061; 82306; 83036; 84439; 84443; 85025; 85652; 86140; 86618

== ENCOUNTER → 2021-06-13 | Outpatient (CLI) | payer MEDICAID ==
[~2021-06-13] MED LIST changes: +DENOSUMAB 60 MG/ML 1 ML SYRINGE SQ NR; -DENOSUMAB 60 MG/ML 1 ML SYRINGE SQ ONE
[2021-06-13 14:43] VITALS: BP 113/76; PULSE 108; RESP 16; TEMP 98.6
== END ==
LOC: PROCWHC3 14:32
PROVIDERS: ATTEND Family Medicine
DX: M81.0 Age-related osteoporosis without current pathological fracture (principal); E03.9 Hypothyroidism, unspecified; F41.1 Generalized anxiety disorder; Z88.1 Allergy status to other antibiotic agents; Z88.5 Allergy status to narcotic agent
CPT/HCPCS: 96372; J0897

== ENCOUNTER → 2021-06-21 | Outpatient (CLI) | payer MEDICAID ==
--- NOTE | 2021-06-21 22:47 | BD ---
EXAMINATION TYPE: Axial Bone Density DATE OF EXAM: 06/21/2021 COMPARISON: 2019 CLINICAL HISTORY: 60 years year old Female. ICD-10 CODE: M81.0 AGE-RELATED OSTEOPOROSIS Height: 5'2 Weight: 116 FRAX RISK QUESTIONS: Secondary Osteoporosis: RISK FACTORS HISTORY OF: Family History of Osteoporosis: y Postmenopausal woman: y MEDICATIONS: Thyroid Medications: Which medication: levothyroxine How Lon yrs. Osteoporosis Medications: Which medication: Prolia How Lon years Additional Medications: Cymbalta, Additional History: EXAM MEASUREMENTS: Bone mineral densitometry was performed using the [employer] System. Bone mineral density as measured about the Lumbar spine is: ----- L1-L4(G/cm2): 0.969 T Score Values are as follows: ----- L1:-1.5 ----- L2: -1.8 ----- L3: -1.2 ----- L4: -2.5 ----- L1-L4:-1.8 Bone mineral density has: increased 1.0% since study of: 03/04/2019 Bone mineral density about the R hip (g/cm2): 0.832 Bone mineral density about the L hip (g/cm2): 0.781 T Score values are as follows: -----R Neck: -1.5 -----L Neck: -1.8 -----R Total: -1.4 -----L Total: -1.1 Bone mineral density has: Increased 2.6% since study of: 03/04/2019 FRAX: The graph provided illustrates a 16.9% chance for a major osteoporotic fx and a 1.2 %chance for the hips probability for fx in 10 years time. IMPRESSION: Osteopenia (T Score between -2.5 and -1). There is slightly increased risk of fracture and the patient may be considered for treatment. Re-Screen 2-5 years. NOTE: T-SCORE=SD OF THE YOUNG ADULT MEAN.
== END | disposition home or self-care (01) ==
LOC: RADBDWWP 07:13
PROVIDERS: ATTEND Family Medicine
DX: M85.89 Other specified disorders of bone density and structure, multiple sites (principal)
CPT/HCPCS: 77080

== ENCOUNTER → 2021-06-27 | Outpatient (CLI) | payer MEDICAID ==
--- NOTE | 2021-06-27 22:01 | US ---
EXAMINATION TYPE: US pelvis complete transvag DATE OF EXAM: 06/27/2021 COMPARISON: 12/08/2020 CLINICAL HISTORY: 60-year-old female N83.0 Follicular cyst of ovary. Hx of ovarian cyst TECHNIQUE: Transabdominal sonographic images of the pelvis were acquired. Transvaginal sonographic i mages were medically necessary to better assess the anatomy. FINDINGS: EXAM MEASUREMENTS: Uterus: 7.7 x 3.4 x 4.2 cm Endometrial Stripe: .4 cm Left Ovary: 2.8 x 1.8 x 2.1 cm 1. Uterus: Anteverted and otherwise wnl 2. Endometrium: Small amount of fluid visualized in the uterine cavity measuring 2 mm thick 3. Right Ovary: Obscured by overlying bowel gas 4. Left Ovary: Cystic area seen 1.2 x 1.2 x 1.3 cm. On 12/08/2020, this also measured 1.2 cm. 5. Bilateral Adnexa: wnl 6. Posterior cul-de-sac: wnl IMPRESSION: 1. Similar trace sliver fluid within the uterine cavity. The endometrial stripe remains thickened at 4 mm. Consider additional 6 month follow-up. 2. Unable to visualize the right ovary on the present exam. 3. Similar cyst within the left ovary currently measuring 1.3 cm versus 1.2 cm, previously. This can also be reassessed at follow-up.
== END | disposition home or self-care (01) ==
LOC: RADUSWWP 14:40
PROVIDERS: ATTEND Obstetrics & Gynecology
DX: N83.202 Unspecified ovarian cyst, left side (principal)
CPT/HCPCS: 76830; 76856

== ENCOUNTER → 2021-07-12 | Outpatient (CLI) | payer MEDICAID ==
--- NOTE | 2021-07-13 09:59 | MM ---
Reason for Exam: Screening (asymptomatic). Last mammogram was performed 1 year(s) and 5 month(s) ago. Patient History: Menarche at age 12. First Full-Term at age 27. Postmenopausal. Currently using Estrogen, starting at age 51. Risk Values: Louise 5 year model risk: 1.7%. NCI Lifetime model risk: 7.7%. Film Views: Bilateral CC views were taken. Bilateral MLO views were taken. Prior Study Comparison: 07/19/2017 Bilateral Screening Mammogram, [facility]. 11/25/2018 Bilateral Screening Mammogram, [facility]. 02/03/2020 Bilateral Screening Mammogram, [facility]. Tissue Density: There are scattered fibroglandular densities. Findings: Analyzed By CAD. There is no suspicious group of microcalcifications or new suspicious mass in either breast. Overall Assessment: Benign, BI-RAD 2 Management: Screening Mammogram of both breasts in 1 year. A clinical breast exam by your physician is recommended on an annual basis and results should be correlated with mammographic findings. Electronically signed and approved by: Richie Patel M.D. Radiologis
== END | disposition home or self-care (01) ==
LOC: RADMAMWWP 07:18
PROVIDERS: ATTEND Family Medicine
DX: Z12.31 Encounter for screening mammogram for malignant neoplasm of breast (principal); Z78.0 Asymptomatic menopausal state
CPT/HCPCS: 77063; 77067

== ENCOUNTER → 2022-02-02 | Outpatient (CLI) | payer MEDICAID ==
[2022-02-02 14:15] VITALS: BP 130/81; PULSE 94; RESP 16; TEMP 97.8
== END ==
LOC: PROCWHC3 14:08
PROVIDERS: ATTEND Family Medicine
DX: M81.0 Age-related osteoporosis without current pathological fracture (principal); Z88.0 Allergy status to penicillin; Z88.1 Allergy status to other antibiotic agents; Z88.5 Allergy status to narcotic agent
CPT/HCPCS: 96372; J0897

== ENCOUNTER 2022-02-14 06:28 | Day surgery (SDC) | payer MEDICAID ==
[2022-02-12 11:25] VITALS: BMI 21.0
[2022-02-14 06:56] VITALS: TEMP 97.1
[2022-02-14] MEDS ORDERED: LACTATED RINGERS 1,000 ML IV SCH (07:08)
[2022-02-14] MEDS ORDERED: LIDOCAINE 2% INJ 20 MG/ML (2 ML VIAL) ONE (07:54)
[2022-02-14] MEDS ORDERED: PROPOFOL 10 MG/ML 20 ML VIAL IV ONE (07:54)
--- NOTE | 2022-02-14 08:07 | P.PCN ---
Date of Procedure: 02/14/22 Procedure(s) Performed: BRIEF HISTORY: Patient is a 61-year-old pleasant white female scheduled for an elective colonoscopy as a part of screening for colon cancer. Her last colonoscopy was 10 years ago. PROCEDURE PERFORMED: Colonoscopy. PREOPERATIVE DIAGNOSIS: Screening for colon cancer. IV sedation per Anesthesia. PROCEDURE: After informed consent was obtained, the patient, was brought into the endoscopy unit. IV sedation was administered by Anesthesia under continuous monitoring. Digital rectal examination was normal. Initially the Olympus CF-160 flexible video colonoscope was then inserted in the rectum, gradually advanced into the cecum without any difficulty. Careful examination was performed as the scope was gradually being withdrawn. Ileocecal valve and the appendiceal orifice were visualized and appeared normal. Prep was excellent. Mucosa of the cecum, ascending colon, transverse colon, descending colon, sigmoid colon, and rectum appeared normal. Retroflexion was performed in the rectum and no lesions were seen. The patient tolerated the procedure well. IMPRESSION: Normal-appearing colon from rectum to cecum with no evidence of colorectal neoplasia . RECOMMENDATIONS: Findings of this examination were discussed with the patient as a family. She was advised to have a repeat screening colonoscopy in 10 years..
[2022-02-14 08:24] VITALS: RESP 16
[2022-02-14 08:40] VITALS: BP 130/81; PULSE 84
== END 2022-02-14 08:58 | disposition home or self-care (01) ==
LOC: ORWHC2ENDO 06:28
PROVIDERS: ATTEND Internal Medicine Gastroenterology
DX: Z12.11 Encounter for screening for malignant neoplasm of colon (principal)
CPT/HCPCS: 45378; J2704; J2001

== ENCOUNTER → 2022-06-08 | Outpatient (CLI) | payer MEDICAID ==
[2022-06-08 11:24] LABS: LDL Cholesterol,Calculated 93.5 mg/dL (0.0-131.0); VLDL Calculation 10.28 mg/dL (5.00-40.00)
== END | disposition home or self-care (01) ==
LOC: LABWHC1 07:03
PROVIDERS: ATTEND Family Medicine
DX: Z00.00 Encounter for general adult medical examination without abnormal findings (principal); E03.8 Other specified hypothyroidism; M81.0 Age-related osteoporosis without current pathological fracture
CPT/HCPCS: 36415; 80061; 82306; 83036; 84439; 84443

== ENCOUNTER → 2022-09-05 | Outpatient (CLI) | payer MEDICAID ==
--- NOTE | 2022-09-06 08:50 | MM ---
Reason for Exam: Screening (asymptomatic). Last mammogram was performed 1 year(s) and 2 month(s) ago. Patient History: Menarche at age 12. First Full-Term at age 27. Postmenopausal. Estrogen, starting at age 51. Risk Values: Louise 5 year model risk: 1.7%. NCI Lifetime model risk: 7.4%. Prior Study Comparison: 11/25/2018 Bilateral Screening Mammogram, [facility]. 02/03/2020 Bilateral Screening Mammogram, [facility]. 07/12/2021 Bilateral MG 3D screening mammo w/cad, [facility]. Tissue Density: The breast tissue is heterogeneously dense. This may lower the sensitivity of mammography. Findings: Analyzed By CAD. There is no suspicious group of microcalcifications or new suspicious mass in either breast. Overall Assessment: Negative, BI-RAD 1 Management: Screening Mammogram of both breasts in 1 year. A clinical breast exam by your physician is recommended on an annual basis and results should be correlated with mammographic findings. Note on Louise scores and lifetime risk: 1. A Louise score greater than 3% is considered moderate risk. If this is the case, consider specialist referral to assess eligibility for a risk reducing agent. If overall lifetime risk for the development of breast cancer is 20% or higher, the patient may qualify for future screening with alternating mammogram and breast MRI. Electronically signed and approved by: Dat Cisse D.O.
== END | disposition home or self-care (01) ==
LOC: RADMAMWWP 14:57
PROVIDERS: ATTEND Family Medicine
DX: Z12.31 Encounter for screening mammogram for malignant neoplasm of breast (principal); Z78.0 Asymptomatic menopausal state
CPT/HCPCS: 77063; 77067

== ENCOUNTER → 2022-09-05 | Outpatient (CLI) | payer MEDICAID ==
--- NOTE | 2022-09-05 23:08 | US ---
EXAMINATION TYPE: US thyroid st tissue head/neck DATE OF EXAM: 09/05/2022 COMPARISON: NONE CLINICAL INDICATION: Female, 62 years old with history of E04.1 thyroid nodule; Thyroid nodules. GLAND SIZE: Right Lobe: 4.9 x 1.7 x 1.6 cm Overall Parenchyma: homogenous Left Lobe: 4.1 x .6 x 1.2 cm Overall Parenchyma: homogeneous Isthmus Thickness: .2 cm NODULES RIGHT: # of nodules measured on right: 1 1. 1.9 X 1.3 x 1.4 cm, lower , solid or almost completely solid, hypoechoic nodule, which is wider than tall, with smooth margins, echogenic foci. Prior size: 2.1 x 1.5 x 1.3 cm LEFT: # of nodules measured on left: 0 One on previous exam not seen on today's study. ISTHMUS: # of nodules measured in the isthmus: 0 Bilateral neck scanned, no evidence of lymphadenopathy. IMPRESSION: Moderately suspicious nodule right lobe thyroid. Biopsy can be performed not previously biopsied 2017 ACR TI-RADS LEVEL: TR-RADS 4 - Moderately Suspicious: Follow if > 1 cm, FNA if > 1.5 cm *Highest TI-RADS level nodule reported
== END | disposition home or self-care (01) ==
LOC: RADUSWWP 14:55
PROVIDERS: ATTEND Family Medicine
DX: E04.1 Nontoxic single thyroid nodule (principal)
CPT/HCPCS: 76536

== ENCOUNTER → 2022-09-12 | Outpatient (CLI) | payer MEDICAID ==
[2022-09-12 14:22] VITALS: BP 147/79; PULSE 82; RESP 15; TEMP 97.4
== END ==
LOC: PROCWHC3 14:01
PROVIDERS: ATTEND Family Medicine
DX: M81.0 Age-related osteoporosis without current pathological fracture (principal)
CPT/HCPCS: 96372; J0897

== ENCOUNTER → 2023-01-17 | Outpatient (CLI) | payer MEDICAID ==
[2023-01-18 02:58] LABS: Basophils # (A) 0.03 X 10*3/uL (0.00-0.10); Basophils % (A) 0.4 %; Eosinophils # (A) 0.07 X 10*3/uL (0.04-0.35); HCT 41.4 % (37.2-46.3); HGB 13.9 g/dL (12.0-15.0); Lymphocytes # (A) 1.85 X 10*3/uL (0.90-5.00); Lymphocytes % (A) 25.3 %; MCH 32.3 pg (27.0-32.0); MCHC 33.6 g/dL (32.0-37.0); MCV 96.3 FL (80.0-97.0); Mean Platelet Volume 8.9 FL (9.5-12.2); Monocytes # (A) 0.65 X 10*3/uL (0.20-1.00); Monocytes % (A) 8.9 %; NRBC Per 100 WBC 0 X 10*3/uL (0.00-0.01); Neutrophils # (A) 4.68 X 10*3/uL (1.80-7.70); Platelet Count 327 X 10*3/uL (140-440); RDW 11.9 % (11.5-14.5); WBC 7.31 X 10*3/uL (4.50-10.00)
[2023-01-18 04:45] LABS: T4, Free (Free Thyroxine) 1.28 ng/dL (0.80-1.80)
== END | disposition home or self-care (01) ==
LOC: LABWHC1 16:04
PROVIDERS: ATTEND Family Medicine
DX: E03.8 Other specified hypothyroidism (principal); R00.0 Tachycardia, unspecified
CPT/HCPCS: 36415; 84439; 84443; 85025

== ENCOUNTER → 2023-09-03 | Outpatient (CLI) | payer MEDICAID ==
[2023-09-03 11:11] LABS: Basophils # (A) 0.02 X 10*3/uL (0.00-0.10); Basophils % (A) 0.4 %; Eosinophils # (A) 0.09 X 10*3/uL (0.04-0.35); Eosinophils % (A) 1.7 %; HCT 44.1 % (37.2-46.3); HGB 14.6 g/dL (12.0-15.0); Lymphocytes # (A) 1.51 X 10*3/uL (0.90-5.00); Lymphocytes % (A) 28.3 %; MCH 32.4 pg (27.0-32.0); MCHC 33.1 g/dL (32.0-37.0); Mean Platelet Volume 9.3 FL (9.5-12.2); Monocytes # (A) 0.55 X 10*3/uL (0.20-1.00); Monocytes % (A) 10.3 %; NRBC Per 100 WBC 0 X 10*3/uL (0.00-0.01); Neutrophils # (A) 3.15 X 10*3/uL (1.80-7.70); Neutrophils % (A) 59.1 %; Platelet Count 316 X 10*3/uL (140-440); RDW 12.1 % (11.5-14.5); WBC 5.33 X 10*3/uL (4.50-10.00)
[2023-09-03 11:14] LABS: ALT 21 U/L (8-44); AST 22 U/L (13-35); Albumin 4.5 g/dL (3.8-4.9); Albumin/Globulin Ratio 1.96 Ratio (1.60-3.17); Alkaline Phosphatase 100 U/L (41-126); Blood Urea Nitrogen 17.1 mg/dL (9.0-27.0); Carbon Dioxide 28.3 mmol/L (21.6-31.8); Chloride 104 mmol/L (96-109); Chol/HDL Ratio 2.73 Ratio; Globulin 2.3 g/dL (1.6-3.3); Glucose 94 mg/dL (70-110); LDL Cholesterol,Calculated 113.2 mg/dL (0.0-131.0); Potassium 4.2 mmol/L (3.5-5.5); Sodium 143 mmol/L (135-145); Total Bilirubin 0.4 mg/dL (0.3-1.2); Total Protein 6.8 g/dL (6.2-8.2); VLDL Calculation 17.44 mg/dL (5.00-40.00)
[2023-09-03 15:15] LABS: T4, Free (Free Thyroxine) 1.36 ng/dL (0.80-1.80)
== END | disposition home or self-care (01) ==
LOC: LABWHC1 06:54
PROVIDERS: ATTEND Family Medicine
DX: Z00.00 Encounter for general adult medical examination without abnormal findings (principal); Z11.59 Encounter for screening for other viral diseases; E03.8 Other specified hypothyroidism
CPT/HCPCS: 36415; 80053; 80061; 83036; 84439; 84443; 85025; 86803

== ENCOUNTER → 2023-09-05 | Outpatient (CLI) | payer MEDICAID ==
--- NOTE | 2023-09-05 23:49 | BD ---
EXAMINATION TYPE: Axial Bone Density DATE OF EXAM: 09/05/2023 CLINICAL HISTORY: 63 years old Female. ICD-10 CODE: Z78.0 MENOPAUSAL STATE Height: 62 Weight: 117 FRAX RISK QUESTIONS: Alcohol (3 or more units per day): no Family History (Parent hip fracture): no Glucocorticoids (More than 3mos): no (Ex: prednisone, prednisolone, methylprednisolone, dexamethasone, and hydrocortisone). History of Fracture in Adulthood: no Secondary Osteoporosis: 1. Type 1 Diabetes: no 2. Hyperthyroidism: no 3. Menopause before 45: no 4. Malnutrition: no 5. Chronic liver disease: no Rheumatoid Arthritis: no Current Tobacco Use: no RISK FACTORS HISTORY OF: Surgery to Spine/Hip(right/left)/Wrist (right/left): no MEDICATIONS: Thyroid Medications: synthroid How Lon years Osteoporosis Medications: Prolia How Lon injections EXAM MEASUREMENTS: Bone mineral densitometry was performed using the [employer] System. Bone mineral density as measured about the Lumbar spine is: ----- L1-L4(G/cm2): 0.855 T Score Values are as follows: ----- L1: -2.6 ----- L2: -2.9 ----- L3: -2.3 ----- L4: -3.1 ----- L1-L4: -2.7 Z Score Values are as follows: ----- L1: -0.7 ----- L2: -1.0 ----- L3: -0.4 ----- L4: -1.2 ----- L1-L4: -0.8 Bone mineral density has: decreased -11.8 % since study of: 06.21.2021 Bone mineral density about the R hip (g/cm2): 0.802 Bone mineral density about the L hip (g/cm2): 0.817 T Score values are as follows: -----R Neck: -1.9 -----L Neck: -2.3 -----R Total: -1.6 -----L Total: -1.5 Z Score values are as follows: -----R Neck: -0.2 -----L Neck: -0.6 -----R Total: -0.2 -----L Total: -0.1 Bone mineral density has: decreased -5.3 % since study of: 5.4.2021 FRAX%s: The graph provided illustrates a 10.8% chance for a major osteoporotic fx and a 2.0% chance f or the hips probability for fx in 10 years time. IMPRESSION: Osteoporosis (T Score less than -2.5). There is increased fracture risk and therapy is usually indicated based on age. Re-Screen 1-2 years. NOTE: T-SCORE=SD OF THE YOUNG ADULT MEAN.
--- NOTE | 2023-09-06 00:07 | US ---
EXAMINATION TYPE: US pelvis complete transvag DATE OF EXAM: 09/05/2023 COMPARISON: 06/27/2021 CLINICAL INDICATION: Female, 63 years old with history of N83.209 OVARIAN CYST; Patient denies any ch anges from prior TECHNIQUE: . Transabdominal sonographic images of the pelvis were acquired. Transvaginal sonographi c images were medically necessary to better assess the following anatomy: Right ovary and endometrium Date of LMP: EXAM MEASUREMENTS: Uterus: 6.1 x 2.5 x 3.5 cm Endometrial Stripe: 0.2 cm Right Ovary: 1.6 x 0.9 x 1.7 cm Left Ovary: 1.7 x 1.0 x 1.2 cm 1. Uterus: Anteverted wnl 2. Endometrium: wnl 3. Right Ovary: wnl 4. Left Ovary: wnl 5. Bilateral Adnexa: wnl 6. Posterior cul-de-sac: wnl IMPRESSION: 1. Unremarkable pelvic ultrasound
== END | disposition home or self-care (01) ==
LOC: RADUSWWP 09:12
PROVIDERS: ATTEND Family Medicine
DX: N83.202 Unspecified ovarian cyst, left side (principal); N83.201 Unspecified ovarian cyst, right side; M85.89 Other specified disorders of bone density and structure, multiple sites; Z78.0 Asymptomatic menopausal state
CPT/HCPCS: 76830; 76856; 77080

== ENCOUNTER → 2023-09-11 | Outpatient (CLI) | payer MEDICAID ==
[2023-09-11 16:31] VITALS: BP 128/80; PULSE 78; RESP 14; TEMP 98
[2023-09-11] MEDS: DENOSUMAB 60 MG/ML 1 ML SYRINGE SQ NR (16:41)
== END ==
LOC: PROCWHC3 14:52
PROVIDERS: ATTEND Family Medicine
DX: M81.0 Age-related osteoporosis without current pathological fracture (principal)
CPT/HCPCS: 96372; J0897

== ENCOUNTER → 2024-03-17 | Outpatient (CLI) | payer MEDICAID ==
[2024-03-17 14:02] VITALS: BP 138/80; PULSE 87; RESP 18; TEMP 97.7
[2024-03-17] MEDS: DENOSUMAB 60 MG/ML 1 ML SYRINGE SQ NR (14:03)
== END ==
LOC: PROCWHC3 13:54
PROVIDERS: ATTEND Family Medicine
DX: M81.0 Age-related osteoporosis without current pathological fracture (principal)
CPT/HCPCS: 96372; J0897

== ENCOUNTER → 2024-05-14 | Outpatient (CLI) | payer MEDICAID ==
--- NOTE | 2024-05-14 10:03 | MM ---
Reason for Exam: Screening (asymptomatic). Last mammogram was performed 1 year(s) and 8 month(s) ago. Patient History: Menarche at age 12. First Full-Term at age 27. Postmenopausal. Patient has history of breast feeding. Estrogen, starting at age 51. Risk Values: Louise 5 year model risk: 1.8%. NCI Lifetime model risk: 7.2%. Prior Study Comparison: 07/19/2017 Bilateral Screening Mammogram, [facility]. 11/25/2018 Bilateral Screening Mammogram, [facility]. 02/03/2020 Bilateral Screening Mammogram, [facility]. 07/12/2021 Bilateral MG 3D screening mammo w/cad, [facility]. 09/05/2022 Bilateral MG 3D screening mammo w/cad, [facility]. Tissue Density: The breasts are heterogeneously dense, which may obscure small masses. Findings: Analyzed By CAD. There is no suspicious group of microcalcifications or new suspicious mass in either breast. Stable tiny area of chronic nodularity posterior right breast. Overall Assessment: Benign, BI-RAD 2 Management: Screening Mammogram of both breasts in 1 year. . Patient should continue monthly self-breast exams. A clinical breast exam by your physician is recommended on an annual basis. This exam should not preclude additional follow-up of suspicious palpable abnormalities. Note on Louise scores and lifetime risk: 1. A Louise score greater than 3% is considered moderate risk. If this is the case, consider specialist referral to assess eligibility for a risk reducing agent. 2. If overall lifetime risk for the development of breast cancer is 20% or higher, the patient may qualify for future screening with alternating mammogram and breast MRI. [facility], , 05/14/2024 9:59 AM. Electronically signed and approved by: Dwain Baptiste M.D. Radiologis
== END | disposition home or self-care (01) ==
LOC: RADMAMWWP 09:37
PROVIDERS: ATTEND Family Medicine
DX: Z12.31 Encounter for screening mammogram for malignant neoplasm of breast (principal); R92.333 Mammographic heterogeneous density, bilateral breasts; Z78.0 Asymptomatic menopausal state
CPT/HCPCS: 77063; 77067

== ENCOUNTER → 2024-07-07 | Outpatient (CLI) | payer MEDICAID ==
[2024-07-07 15:44] VITALS: BP 147/80; PULSE 88; RESP 12; TEMP 97.9
--- NOTE | 2024-07-07 16:13 | P.SLEEP ---
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 Her last encounter with me was back in 2018. The patient has done very well over the years and the patient continues to use a ResMed CPAP unit which is set at a pressure of 7 cm of water. She is using the AirFit P10 nasal pillows. No snoring while on CPAP. No reported apneas or gasping for air during sleep. She wakes up alert and awake and refreshed during the day as long as she has her CPAP machine on. The patient goes to bed around 10 PM and she wakes at 5:45 AM in the morning. On weekends, she sleeps at 11 PM and she gets up at 7:30 AM in the morning. No issues with sleep induction. She does not take any naps during the day. Her weight has remained stable over the years and her Morgan score is at 2. She is taking Cymbalta for chronic fibromyalgia. She is also on thyroid hormone replacement. I checked her machine. The patient is still set at a pressure of 7 cm of water. Excellent compliance data in the patient's overall usage of CPAP based on days used is in the order of 100%. She is achieving more than 4 hours 100% of the time. She has been averaging about 8.5 hours of CPAP use per night and the leak is minimal at 5 L/min and her AHI is down to 4.4 indicating successful treatment. No congestion heart failure. No stroke. No reported atrial fibrillation. No complaints. Review of Systems Constitutional: Reports as per HPI Eyes: denies as per HPI, denies blurred vision, denies bulging eye, denies decreased vision, denies diplopia, denies discharge, denies dry eye, denies irritation, denies itching, denies pain, denies photophobia, denies loss of peripheral vision, denies loss of vision, denies tunnel vision/blind spots Ears: deny: decreased hearing, ear discharge, earache, tinnitus Ears, nose, mouth and throat: Reports as per HPI Breasts: absent: as per HPI, change in shape, gynecomastia, masses, nipple discharge, pain, skin changes, swelling Cardiovascular: Reports as per HPI Respiratory: Reports sleep apnea Genitourinary: Reports as per HPI Menstruation: Reports as per HPI Musculoskeletal: Reports as per HPI Musculoskeletal: absent: ankle pain, ankle stiffness, ankle swelling, as per HPI, elbow pain, elbow stiffness, elbow swelling, foot pain, foot stiffness, foot swelling, hand pain, hand stiffness, hand swelling, hip pain, hip stiffne ss, hip swelling, knee pain, knee stiffness, knee swelling, shoulder pain, shoulder stiffness, shoulder swelling, wrist pain, wrist stiffness, wrist swelling Integumentary: Reports as per HPI Neurological: Reports as per HPI Psychiatric: Reports as per HPI Endocrine: Reports as per HPI Hematologic/Lymphatic: Reports as per HPI Allergic/Immunologic: Reports as per HPI Past Medical History Past Medical History: GERD/Reflux, Sleep Apnea/CPAP/BIPAP, Thyroid Disorder Additional Past Medical History / Comment(s): OSTEOPOROSIS, HEMORROIDS, BURNING MOUTH SYNDROME. FEELING HEAVINESS, PAIN IN BREAST BONE ARE AFTER HEAVY MEAL. USES CPAP. History of Any Multi-Drug Resistant Organisms: None Reported Past Surgical History: Section Additional Past Surgical History / Comment(s): 4 C-sections. D and C. COLONOSCOPY X2, EGD, thyroid biopsy Past Anesthesia/Blood Transfusion Reactions: No Reported Reaction Past Psychological History: Anxiety Smoking Status: Never smoker Past Alcohol Use History: Occasional Past Drug Use History: None Reported - Past Family History Father Family Medical History: Cancer Additional Family Medical History / Comment(s): prostate Mother Family Medical History: Cancer Additional Family Medical History / Comment(s): lung Medications and Allergies Home Medications Medication Instructions Recorded Confirmed Type Levothyroxine Sodium [Synthroid] 50 mcg PO DAILY 10/27/14 09/11/23 History Calcium W/Vitamim D3 1 cap PO DAILY 07/22/18 09/11/23 History Ibuprofen [Advil] 200 mg PO Q8HR PRN 07/22/18 09/11/23 History Prolia Injection (Unknown Dose 1 injection INJ Q6M 07/22/18 09/11/23 History Famotidine [Pepcid] 20 mg PO DAILY 11/17/19 09/11/23 History Multivitamins, Thera [Multivitamin 1 tab PO DAILY 05/13/20 09/11/23 History (formulary)] QUEtiapine [SEROquel] 25 mg PO HS 12/12/20 09/11/23 History DULoxetine HCL [Cymbalta] 07/07/24 History Allergies Allergy/AdvReac Type Severity Reaction Status Date / Time amoxicillin [From Augmentin] Allergy Rash/Hives Verified 09/11/23 15:37 cefuroxime axetil Allergy Rash/Hives Verified 09/11/23 15:37 [From Ceftin] clavulanic acid Allergy Rash/Hives Verified 09/11/23 15:37 [From Augmentin] morphine Allergy Rash/Hives Verified 09/11/23 15:37 Physical Exam Vitals: Vital Signs Temp Pulse Resp BP Pulse Ox 07/07/24 15:43 97.9 F 88 12 147/80 99 Intake and Output 07/07/24 07/07/24 07/07/24 06:59 14:59 22:59 Other: Weight 53.524 kg Assessment and Plan Plan: Obstructive sleep apnea, AHI of 35, undergoing successful CPAP therapy at a pressure of 7 cm of water. Excellent compliancy and clinical response. The patient is utilizing an AirFit P10 nasal pillow. Hypothyroidism, currently on thyroid hormone replacement Chronic fibromyalgia on Cymbalta Osteoporosis History of hemorrhoids Acid reflux Plan The patient has a functional machine. Her treatment remains successful. Excellent compliancy. Excellent clinical response. Will keep her on the same CPAP pressure and I am going to offer her a AirTouch N30 I nasal mask as an alternative mask to try and decide if this is something that she would like to use in the future. Her weight has remained stable. She has good sleep hygiene measures. She is going to retire in few months time. 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 Will continue to follow. Time with Patient: Greater than 30 Sleep Note - Sleep Note Sleep Note: Temperature: 97.9 F Pulse Rate: 88 Respiratory Rate: 12 Blood Pressure: 147/80 SpO2: 99 Height: 5 ft 2 in Weight: 53.524 kg BMI: Neck Circumference: 13.2
== END ==
LOC: 3 N SLEEP 14:42
PROVIDERS: ATTEND Internal Medicine Critical Care Medicine
DX: G47.33 Obstructive sleep apnea (adult) (pediatric) (principal); E03.9 Hypothyroidism, unspecified; M79.7 Fibromyalgia; M81.0 Age-related osteoporosis without current pathological fracture; K21.9 Gastro-esophageal reflux disease without esophagitis; Z79.890 Hormone replacement therapy; Z87.19 Personal history of other diseases of the digestive system; Z79.899 Other long term (current) drug therapy; Z88.0 Allergy status to penicillin; Z88.5 Allergy status to narcotic agent; Z88.1 Allergy status to other antibiotic agents; Z99.89 Dependence on other enabling machines and devices
CPT/HCPCS: 99211

== ENCOUNTER → 2024-09-16 | Outpatient (CLI) | payer MEDICARE ==
[2024-09-16] MEDS: DENOSUMAB 60 MG/ML 1 ML SYRINGE SQ NR (13:35)
[2024-09-16 13:37] VITALS: BP 130/81; PULSE 103; RESP 16; TEMP 97.7
== END ==
LOC: PROCWHC3 13:21
PROVIDERS: ATTEND Family Medicine
DX: M81.0 Age-related osteoporosis without current pathological fracture (principal)
CPT/HCPCS: 96372; J0897